=== PATIENT | male | born 1990 | race Caucasian/White ===

== ENCOUNTER 2018-10-13 15:10 | Observation (INO) | payer OTHER ==
[2018-10-13] MEDS ORDERED: Lidocaine 1% 4 ML ONE (15:38)
[2018-10-13] MEDS ORDERED: Succinylcholine/Normal Saline 100 MG/5 ML Syringe ONE (15:38)
[2018-10-13] MEDS ORDERED: Lactated Ringers 1,000 ML ONE (15:38)
[2018-10-13] MEDS ORDERED: fentaNYL 250 MCG/5 ML SDV ONE (15:38)
[2018-10-13] MEDS ORDERED: Rocuronium 50 MG/5 ML Vial ONE (15:38)
[2018-10-13] MEDS ORDERED: Midazolam 1 MG/ML 2 ML SDV ONE (15:38)
[2018-10-13] MEDS ORDERED: Propofol 200 MG/20 ML SDV ONE ×2 (15:38→19:03)
[2018-10-13] MEDS ORDERED: ceFAZolin 1 GM Vial ONE (15:38)
[2018-10-13] MEDS ORDERED: Ondansetron 4 MG/2 ML SDV ONE ×2 (15:38→15:39)
[2018-10-13] MEDS ORDERED: Ketorolac 30 MG/ML SDV ONE (15:39)
[2018-10-13] MEDS ORDERED: Dexamethasone 4 MG/ML 5 ML MDV ONE (15:39)
[2018-10-13] MEDS ORDERED: Sodium Chloride 0.9% 10 ML Syringe FLUSH PRN (15:57)
[2018-10-13] MEDS ORDERED: Lactated Ringers 1,000 ML IV SCH (16:00)
--- NOTE | 2018-10-13 16:39 | PCM.HP ---
H&P History of Present Illness - General Date of Service: 10/13/18 Admit Problem/Dx: incarcerated ventral hernia Source of Information: Patient History Limitations: Reports: No Limitations - History of Present Illness Initial Comments - Free Text/Narative: 28 yo male, was seen in the primary clinic for worsening pain and bulge in his abdomen. His PCM asked me to perform surgical evaluation of the patient. The patient had a prior ex-lap for perforated appendicitis at the age of 13, and he has a known ventral hernia. He was seen by Dr. Garay (former General Surgeon at [facility]) in August 2017 and had [address] a CT scan at that time. He did not have any symptoms, and the hernia was reducible. No surgical intervention was pursued at the time. About 3 days ago, he developed worsening pain at the site of the bulge, which was previously reducible. However, he could not push the bulge back in. He started to develop nausea (without emesis) and diarrhea in the past day. Last meal was at 0900 this morning (two carrots). Right Lower Abdomen Pain Score (Numeric/FACES): 5 - Related Data Allergies/Adverse Reactions: Allergies Allergy/AdvReac Type Severity Reaction Status Date / Time No Known Allergies Allergy Verified 12/24/17 18:03 Past Medical History Respiratory History: Reports: Sleep Apnea Other Respiratory History: uses CPAP Other Musculoskeletal History: Broken leg 2018 - Past Surgical History GI Surgical History: Reports: Appendectomy, Hernia, Abdominal, Other (See Below) Other GI Surgeries/Procedures: colon surgery Musculoskeletal Surgical History: Reports: Other (See Below) (RIGHT tibia surgery (for fracture) in November 2017) Social & Family History - Family History Family Medical History: Noncontributory - Tobacco Use Smoking Status *Q: Former Smoker Used Tobacco, but Quit: Yes Month/Year Tobacco Last Used: 2013 Second Hand Smoke Exposure: No - Caffeine Use Caffeine Use: Reports: None - Recreational Drug Use Recreational Drug Use: No - Living Situation & Occupation Living situation: Reports: , with Family H&P Review of Systems - Review of Systems: Review Of Systems: ROS reveals no pertinent complaints other than HPI. Exam - Exam Exam: See Below - Vital Signs Vital Signs: Last Vital Signs Temp 36.7 C 10/13/18 15:58 Pulse 96 10/13/18 15:58 Resp 18 10/13/18 15:58 BP 141/96 H 10/13/18 15:58 Pulse Ox 99 10/13/18 15:58 Weight: 116.21 kg - Exam General: Alert, Oriented, Cooperative HEENT: Conjunctiva Clear. No: Scleral Icterus Lungs: Clear to Auscultation, Normal Respiratory Effort Cardiovascular: Regular Rate, Regular Rhythm, Normal S1, Normal S2 (Male) Exam: Other (well-healed midline laparotomy scar, with a palpable, firm, tender bulge located just to the RIGHT of the umbilicus. Bulge is about 3- 4 cm in size. Non-reducible.) Extremities: Normal Inspection - Patient Data Lab Results Last 24 hrs: WBC 9.9 CRP 3.4 H/H normal electrolytes WNL UA normal Imaging Impressions Last 24 hrs: CT abdomen Technique: Multiple axial sections were obtained from above the dome of the diaphragm to the mid hip level. Intravenous and oral contrast was utilized. Comparison: Prior CT abdomen and pelvis exam of 12/24/17. Findings: Fat-containing hernia is seen to the right of the umbilicus. This has increased in size from prior exam and shows slight inflammatory-type change. No bowel is seen within this hernia. Visualized lung bases show nothing acute. Liver contains no focal abnormality. Spleen appears within normal limits. Adrenal glands show no nodule. Pancreas is within normal limits. Gallbladder contains no calcified gallstones. Kidneys show symmetric contrast enhancement without hydronephrosis or mass. Aorta shows no aneurysm. No retroperitoneal adenopathy or mesenteric abnormalities are seen. Upper pelvis appears within normal limits. Appendix is not visualized. No bowel abnormality is appreciated. Bone window settings were reviewed which shows nothing acute. Impression: 1. Increasing size of fat-containing abdominal wall hernia located to the right of the umbilicus. Mild increasing inflammatory change is seen within this hernia. No bowel is identified within this hernia. 2. Other normal findings as noted above. Diagnostic code #3 Dictated by: Prem Morgan MD 10/13/18 at 1610 - Problem List (1) Ventral hernia with obstruction SNOMED Code(s): 964428082 ICD Code: K43.6 - OTHER AND UNSP VENTRAL HERNIA WITH OBSTRUCTION, W/O GANGRENE Status: Acute Current Visit: Yes Problem List Initiated/Reviewed/Updated: Yes Orders Last 24hrs: Active Orders 24 hr Category Date Time Status Peripheral IV Care [RC] . DIRECTED Care 10/13/18 15:57 Active Lactated Ringers [Ringers, Lactated] 1,000 ml Med 10/13/18 16:00 Active IV ASDIRECTED Sodium Chloride 0.9% [Saline Flush] Med 10/13/18 15:57 Active 10 ml FLUSH ASDIRECTED PRN Peripheral IV Insertion Adult [OM.PC] Routine Oth 10/13/18 15:57 Ordered Code Status [Resuscitation Status] Routine Resus Stat 10/13/18 16:18 Ordered Medication Orders Lactated Ringer's (Ringers, Lactated) 1,000 mls @ 125 mls/hr IV ASDIRECTED QUANG Sodium Chloride (Saline Flush) 10 ml FLUSH ASDIRECTED PRN PRN Reason: Keep Vein Open Assessment/Plan Comment:: 28 yo male, h/o morbid obesity (BMI 38) and GARY on CPAP, s/p distant ex-lap for perforated appendicitis, with incarcerated ventral hernia. - CT scan to evaluate details of hernia for operative planning. CT scan images and radiology report were reviewed. Fascial defect located adjacent to (just RIGHT of) umbilicus, measuring about 1.8 x 1.7 cm, with fat in the hernia sac with inflammatory changes. Prior CT scan in August 2017 was also reviewed. It appears that the hernia was present at that time, but with less fat in the hernia sac. That CT can did comment on a LEFT lung base nodule, but no parenchymal changes were seen on subsequent CT scan (performed November 2017 and today, September 2018). Patient is a former smoker (quit in 2013). - Consent for laparoscopic ventral hernia repair, with possible mesh, possible open. Indications, risks, and benefits were discussed with the patient in detail. Risks include bleeding, infection, damage to surrounding structures, need for additional procedure, and hernia recurrence. - In preparation for surgery, NPO. - Ancef 2 gm IV service station helper to OR. Chandler Herndon M.D (Siri)., F.A.C.S. General Surgery
[2018-10-13] MEDS ORDERED: ceFAZolin 2 GM in Premix Bag 1 BAG IV ONE (16:41)
[2018-10-13] MEDS: Lidocaine 1% with EPINEPHrine 1:100,000 20 ML MDV ONE ×2 (17:56→18:27)
[2018-10-13] MEDS: Bupivacaine 0.5% 30 ML SDV ONE ×2 (17:56→18:26)
[2018-10-13] MEDS ORDERED: Ketamine 500 mg/10 ML MDV ONE (18:15)
[2018-10-13] MEDS ORDERED: fentaNYL 100 MCG/2 ML SDV IVPUSH PRN (18:17)
[2018-10-13] MEDS ORDERED: Ondansetron 4 MG/2 ML SDV IVPUSH PRN ×2 (18:17→21:13)
[2018-10-13] MEDS ORDERED: diphenhydrAMINE 50 MG/ML SDV IVPUSH PRN (18:17)
[2018-10-13] MEDS ORDERED: HYDROmorphone 0.5 MG/0.5 ML Syringe IVPUSH PRN ×2 (18:17→21:13)
--- NOTE | 2018-10-13 18:17 | PCM.PREANE ---
Preanesthetic Assessment - Anesthesia/Transfusion/Family Hx Anesthesia History: Prior Anesthesia Without Reaction Family History of Anesthesia Reaction: No Transfusion History: Prior Transfusion Without Reaction - Review of Systems General: No Symptoms Pulmonary: No Symptoms (Severe Sleep Apnea uses CPAP. ) Cardiovascular: Other (Borderline hypertension. ) Gastrointestinal: Abdominal Pain, Nausea (Earlier today. ) Neurological: No Symptoms Other: Reports: None - Physical Assessment NPO Status Date: 10/13/18 NPO Status Time: 09:00 (2 small carrots) Pulse: 96 O2 Sat by Pulse Oximetry: 99 Respiratory Rate: 18 Blood Pressure: 141/96 Temperature: 36.7 C Vital Signs: Last Vital Signs Temp 36.7 C 10/13/18 15:58 Pulse 96 10/13/18 15:58 Resp 18 10/13/18 15:58 BP 141/96 H 10/13/18 15:58 Pulse Ox 99 10/13/18 15:58 Height: 1.75 m Weight: 116.21 kg ASA Class: 2E Mental Status: Alert & Oriented x3 Airway Class: Mallampati = 2 Dentition: Reports: Normal Dentition Thyro-Mental Finger Breadths: 3 Mouth Opening Finger Breadths: 3 ROM/Head Extension: Full Lungs: Clear to Auscultation, Normal Respiratory Effort Cardiovascular: Regular Rate, Regular Rhythm - Allergies Allergies/Adverse Reactions: Allergies Allergy/AdvReac Type Severity Reaction Status Date / Time No Known Allergies Allergy Verified 12/24/17 18:03 - Anesthesia Plan Pre-Op Medication Ordered: Anxiolytic - Acknowledgements Anesthesia Type Planned: General Anesthesia Pt an Appropriate Candidate for the Planned Anesthesia: Yes Alternatives and Risks of Anesthesia Discussed w Pt/Guardian: Yes Pt/Guardian Understands and Agrees with Anesthesia Plan: Yes PreAnesthesia Questionnaire Respiratory History: Reports: Sleep Apnea Other Respiratory History: uses CPAP Other Musculoskeletal History: Broken leg 2018 - Past Surgical History GI Surgical History: Reports: Appendectomy, Hernia, Abdominal, Other (See Below) Other GI Surgeries/Procedures: colon surgery Musculoskeletal Surgical History: Reports: Other (See Below) (RIGHT tibia surgery (for fracture) in November 2017) - SUBSTANCE USE Smoking Status *Q: Former Smoker Second Hand Smoke Exposure: No Recreational Drug Use History: No - CURRENT (IN HOUSE) MEDS Current Meds: Current Medications Lactated Ringer's (Ringers, Lactated) 1,000 mls @ 125 mls/hr IV ASDIRECTED QUANG Sodium Chloride (Saline Flush) 10 ml FLUSH ASDIRECTED PRN PRN Reason: Keep Vein Open Discontinued Medications Bupivacaine HCl (Marcaine 0.5%) Confirm Administered Dose 30 ml .ROUTE .STK-MED ONE Stop: 10/13/18 15:46 Cefazolin Sodium (Ancef) Confirm Administered Dose 2 gm .ROUTE .STK-MED ONE Stop: 10/13/18 15:39 Dexamethasone (Dexamethasone) Confirm Administered Dose 20 mg .ROUTE .STK-MED ONE Stop: 10/13/18 15:40 Fentanyl (Sublimaze) Confirm Administered Dose 250 mcg .ROUTE .STK-MED ONE Stop: 10/13/18 15:39 Lidocaine HCl (Xylocaine-Mpf 1%) Confirm Administered Dose 4 mls @ as directed .ROUTE .STK-MED ONE Stop: 10/13/18 15:39 Lactated Ringer's (Ringers, Lactated) Confirm Administered Dose 1,000 mls @ as directed .ROUTE .STK-MED ONE Stop: 10/13/18 15:39 Cefazolin Sodium/Dextrose 2 gm (/ Premix) 50 mls @ 100 mls/hr IV ONETIME ONE Stop: 10/13/18 17:10 Ketorolac Tromethamine (Toradol) Confirm Administered Dose 30 mg .ROUTE .STK- MED ONE Stop: 10/13/18 15:40 Lidocaine/Epinephrine (Xylocaine 1% With Epinephrine 1:100,000) Confirm Administered Dose 20 ml .ROUTE .STK-MED ONE Stop: 10/13/18 15:45 Midazolam HCl (Versed 1 Mg/Ml) Confirm Administered Dose 2 mg .ROUTE .STK-MED ONE Stop: 10/13/18 15:39 Ondansetron HCl (Zofran) Confirm Administered Dose 4 mg .ROUTE .STK-MED ONE Stop: 10/13/18 15:39 Ondansetron HCl (Zofran) Confirm Administered Dose 4 mg .ROUTE .STK-MED ONE Stop: 10/13/18 15:40 Propofol (Diprivan 20 Ml) Confirm Administered Dose 400 mg .ROUTE .STK-MED ONE Stop: 10/13/18 15:39 Rocuronium Herndon (Zemuron) Confirm Administered Dose 50 mg .ROUTE .STK-MED ONE Stop: 10/13/18 15:39 Succinylcholine Chloride (Succinylcholine In Ns Pf) Confirm Administered Dose 100 mg .ROUTE .[facility] Stop: 10/13/18 15:39
[2018-10-13] MEDS ORDERED: Phenylephrine/Normal Saline 100 MCG/ML 10 ML Syringe ONE (19:05)
[2018-10-13] MEDS ORDERED: ePHEDrine/Normal Saline 25 MG/5 ML Syringe ONE (19:18)
[2018-10-13] MEDS ORDERED: Neostigmine Methylsulfate 1 MG/ML 5 ML Syringe ONE (19:23)
[2018-10-13] MEDS ORDERED: HYDROmorphone 0.5 MG/0.5 ML Syringe ONE (19:43)
[2018-10-13] MEDS ORDERED: fentaNYL 100 MCG/2 ML SDV ONE (19:45)
--- NOTE | 2018-10-13 20:05 | PCM.OPNOTE ---
- General Post-Op/Procedure Note Date of Surgery/Procedure: 10/13/18 Operative Procedure(s): laparoscopic, then open, incarcerated ventral hernia repair Findings: 1) laparoscopic approach to evaluate the hernia, including reduction of hernia sac contents and resection of necrotic appearing omental fat 2) Hernia defect measured only 1 x 1 cm. 3) open repair with interrupted 0-Ethibond sutures Pre Op Diagnosis: incarcerated ventral incisional hernia Post-Op Diagnosis: Same Primary Surgeon: Chandler Herndon Anesthesia Provider: Monalisa Juares Pathology: 1) omental fat 2) hernia sac Fluid Replacement, Intraop: 2,500 (crystalloid) Output, Urine Amount: 125 EBL in mLs: 15 Complications: None Condition: Good Free Text/Narrative:: Indications for surgery: The patient is a 28 yo male, who had a distant history of exploratory laparotomy for perforated appendicitis, presenting with worsening pain and bulge just to the RIGHT of the umbilicus. On exam and on CT scan, he was found to have an incarcerated ventral hernia at the umbilicus with a large hernia sac containing incarcerated fat just to the RIGHT of the umbilicus. The patient was consented for urgent laparoscopic ventral hernia repair with possible mesh, possible open. Indications, risks, and benefits were discussed with the patient in detail. Description of procedure: After surgical consent was verified, the patient was brought to the main OR. Anesthesia performed general endotracheal intubation without complications. Appropriate padding and straps were placed. SCD's were on and functioning. The patient receive a perioperative dose of Ancef 2 gm IV. A Bowen catheter and OG tube were inserted. A surgical time-out was performed to verify proper patient, proper site, and proper procedure. Local anesthetic (1:1 solution of 1% lidocaine with epinephrine and 0.5% bupivacaine) was injected at Maravilla's point in the LUQ. A 5 mm incision was made , and a Veress needle was inserted. The abdomen was insufflated to 15 mmHg without complications. Using the Optiview technique, a 5 mm trocar was inserted. The laparoscope was inserted, and there was no evidence of intra- abdominal injury from trocar placement. On inspection of the abdominal cavity, there was omental fat that was stuck along the midline of the abdomen. An additional 5 mm trocar was placed in the left lower quadrant (which would be upsized later to a 12 mm trocar). An additional 5 mm trocar was placed at the suprapubic region. Using blunt and Ligasure dissection, the omental fat that was stuck to the anterior abdominal wall was carefully taken down. This allowed improved exposure of the hernia near the umbilicus. There was a large amount of fat that was stuck in the hernia sac, which was carefully taken down, with pressure applied externally to the hernia. There were parts of the fat that was necrotic appearing. In piecemeal fashion, the fat that was in the hernia sac was resected and removed from the abdomen. The surrounding facia was cleared of adhesed fat. The hernia defect was identified, located at the umbilicus, and it was quite small, measuring about 1 cm. There was a large amount of omental fat that was adhesed to the midline several cm's cephalad to this. The decision was made to avoid further dissection around this area, and to proceed with an open repair, given the small size of the defect. Only large sized mesh (15 cm or larger) were available for the laparoscopic approach. The abdomen was desufflated. After injection of local anesthetic, a horizontal incision about 4 cm long was made overlying the hernia defect. Dissection was carried down to the fascia, and the small hernia defect was identified, measuring about 1 cm. This defect was closed with three interrupted 0-Ethibond sutures. The surgical wound was irrigated. The abdomen was again re-insufflated, and the repair was visualized from within the abdomen. Hemostasis was ensured. Previously, during dissection, there was some bloody oozing from the omental fat, and hemostasis was achieved with application of the Ligasure device. The 12 mm trocar site was closed with an interrupted 0-Vicryl suture via a transfascial suture passer. The suprapubic trocar was removed under direct visualization, and the abdomen was desufflated. The remaining LUQ trocar was removed. All skin incision sites were closed with 4-0 Monocryl and covered with Dermabond. The patient tolerated the procedure well, was extubated, and transported to the PACU in stable condition. At the end of the case, all needle, instrument, and gauze counts were correct. The Bowen catheter and OG tube were removed. I was present and scrubbed for the entirety of the case. Chandler Herndon M.D., F.A.C.S. General Surgery
--- NOTE | 2018-10-13 20:08 | PCM.POSTAN ---
POST ANESTHESIA ASSESSMENT - MENTAL STATUS Mental Status: Alert, Oriented - VITAL SIGNS Pulse Rate: 101 SaO2: 100 Resp Rate: 13 Blood Pressure: 154/88 Temperature: 37.3 C - RESPIRATORY Respiratory Status: Respiratory Rate WNL, Airway Patent, O2 Saturation Stable - CARDIOVASCULAR CV Status: Pulse Rate WNL, Blood Pressure Stable - GASTROINTESTINAL GI Status: No Symptoms - PAIN Pain Score: 0 - POST OP HYDRATION Hydration Status: Adequate & Stable
[2018-10-13] MEDS ORDERED: Promethazine 12.5 MG in Sodium Chloride 0.9% 50 ML IV PRN (21:51)
[2018-10-13] MEDS: Acetaminophen/oxyCODONE 325-5 MG Tab PO PRN (22:24)
[2018-10-14] MEDS: Acetaminophen/oxyCODONE 325-5 MG Tab PO PRN ×2 (02:30→08:20)
--- NOTE | 2018-10-14 10:38 | PCM48HPAN ---
Post Anesthesia Note - EVALUATION WITHIN 48HRS OF ANESTHETIC Vital Signs in Normal Range: Yes Patient Participated in Evaluation: Yes Respiratory Function Stable: Yes Airway Patent: Yes Cardiovascular Function Stable: Yes Hydration Status Stable: Yes Pain Control Satisfactory: Yes Nausea and Vomiting Control Satisfactory: Yes Mental Status Recovered: Yes - COMMENTS/OBSERVATIONS Free Text/Narrative:: late entry
== END 2018-10-14 10:36 | disposition home or self-care (01) ==
LOC: JD.MS 15:50
PROVIDERS: ADMIT Student in an Organized Health Care Education/Training Program; ATTEND Student in an Organized Health Care Education/Training Program
DX: K43.6 Other and unspecified ventral hernia with obstruction, without gangrene (principal); G47.33 Obstructive sleep apnea (adult) (pediatric); E66.01 Morbid (severe) obesity due to excess calories; Z68.38 Body mass index [BMI] 38.0-38.9, adult; Z90.49 Acquired absence of other specified parts of digestive tract; Z99.89 Dependence on other enabling machines and devices; Z53.31 Laparoscopic surgical procedure converted to open procedure; Z87.891 Personal history of nicotine dependence; R93.5 Abnormal findings on diagnostic imaging of other abdominal regions, including retroperitoneum
CPT/HCPCS: 36415; 49561; 74160; 80053; 81003; 85025; 86140; 94762; A9270; G0378; G0379; J0330; J0690; J1100; J1170; J1885; J2001; J2250; J2370; J2405; J2550; J2704; J2710; J3010; J3490; J7050; J7120; Q9967; 00790

== ENCOUNTER 2021-04-17 07:51 | Day surgery (SDC) | payer BC ==
[~2021-04-17 07:51] MED LIST: Lactated Ringers 1,000 ML IV SCH; Lidocaine 1%/Sod Bicarbonate in NS 8.4% 1 ML Syringe IDERM PRN; Sodium Chloride 0.9% 10 ML Syringe FLUSH PRN
--- NOTE | 2021-04-17 08:11 | PCM.PREANE ---
Preanesthetic Assessment - Procedure Proposed Procedure: diag colonoscopy - Anesthesia/Transfusion/Family Hx Anesthesia History: Prior Anesthesia Without Reaction Family History of Anesthesia Reaction: No Transfusion History: No Prior Transfusion(s) - Review of Systems General: No Symptoms Pulmonary: Cough (slight today- couple days) Cardiovascular: No Symptoms Gastrointestinal: No Symptoms Neurological: No Symptoms Other: Reports: None - Physical Assessment NPO Status Date: 04/17/21 NPO Status Time: 05:30 (finished prep) Vital Signs: 129/82 88 97% 18 97.9 Height: 5 ft 9 in Weight: 115 kg ASA Class: 2 Mental Status: Alert & Oriented x3 Airway Class: Mallampati = 1 Dentition: Reports: Normal Dentition Thyro-Mental Finger Breadths: 3 Mouth Opening Finger Breadths: 3 ROM/Head Extension: Full Lungs: Clear to Auscultation, Normal Respiratory Effort Cardiovascular: Regular Rate, Regular Rhythm - Allergies Allergies/Adverse Reactions: Allergies Allergy/AdvReac Type Severity Reaction Status Date / Time No Known Allergies Allergy Verified 12/24/17 18:03 - Blood Blood Available: No - Acknowledgements Anesthesia Type Planned: MAC Pt an Appropriate Candidate for the Planned Anesthesia: Yes Alternatives and Risks of Anesthesia Discussed w Pt/Guardian: Yes Pt/Guardian Understands and Agrees with Anesthesia Plan: Yes PreAnesthesia Questionnaire Cardiovascular History: Reports: Hypertension Respiratory History: Reports: Sleep Apnea Other Respiratory History: uses CPAP- doesn't use anymore Gastrointestinal History: Reports: GERD Other Musculoskeletal History: Broken leg 2018 Psychiatric History: Reports: None Endocrine/Metabolic History: Reports: Obesity/BMI 30+ Oncologic (Cancer) History: Reports: None - Past Surgical History GI Surgical History: Reports: Appendectomy, Hernia, Abdominal, Other (See Below) Other GI Surgeries/Procedures: colon surgery Musculoskeletal Surgical History: Reports: Other (See Below) (RIGHT tibia surgery (for fracture) in November 2017) - SUBSTANCE USE Tobacco Use Status *Q: Former Tobacco User Tobacco Use Within Last Twelve Months: No Second Hand Smoke Exposure: No Days Per Week of Alcohol Use: 1 Recreational Drug Use History: No - HOME MEDS Home Medications: Home Meds Docusate Sodium [Colace] 100 mg PO BID #30 capsule 10/13/18 [Rx] oxyCODONE HCl/Acetaminophen [Percocet 5-325 mg Tablet] 1 - 2 each PO Q4H PRN #30 tablet 10/13/18 [Rx] - CURRENT (IN HOUSE) MEDS Current Meds: Current Medications Lactated Ringer's (Ringers, Lactated) 1,000 mls @ 125 mls/hr IV ASDIRECTED QUANG Stop: 04/17/21 23:00 Lidocaine/Sodium Bicarbonate (Lidocaine 1%/Sod Bicarbonate In Ns 8.4% 1 Ml Syringe) 0.25 ml IDERM ONETIME PRN PRN Reason: Prior to IV Start Stop: 04/17/21 18:00 Sodium Chloride (Sodium Chloride 0.9% 10 Ml Syringe) 10 ml FLUSH ASDIRECTED PRN PRN Reason: Keep Vein Open Stop: 04/17/21 18:00
[2021-04-17] MEDS ORDERED: Propofol 200 MG/20 ML SDV ONE ×2 (08:17→09:08)
[2021-04-17] MEDS ORDERED: Lidocaine 1% 4 ML ONE (08:18)
[2021-04-17] MEDS ORDERED: fentaNYL 100 MCG/2 ML SDV ONE (08:59)
[2021-04-17] MEDS ORDERED: Lactated Ringers 1,000 ML ONE ×2 (09:02→09:15)
[2021-04-17] MEDS ORDERED: Midazolam 1 MG/ML 2 ML SDV ONE (09:11)
--- NOTE | 2021-04-17 09:39 | PCM48HPAN ---
Post Anesthesia Note - EVALUATION WITHIN 48HRS OF ANESTHETIC Vital Signs in Normal Range: Yes Patient Participated in Evaluation: Yes Respiratory Function Stable: Yes Airway Patent: Yes Cardiovascular Function Stable: Yes Hydration Status Stable: Yes Pain Control Satisfactory: Yes Nausea and Vomiting Control Satisfactory: Yes Mental Status Recovered: Yes
--- NOTE | 2021-04-17 09:41 | PCM.PRNOTE ---
- Free Text/Narrative Note: Date: 04/17/2021 Procedure: diagnostic colonoscopy History: recent significant painless bright red blood per rectum. Family history of colon cancer. Endoscopist: Frank Williamson MD Findings: excellent prep. There appeared to be normal cecum, but the ileocecal junction did have the appearance of an end to side anastomosis rather than normal ileocecal valve. No polyps identified. Small internal hemorrhoids. Hypertonic anal sphincter without evidence of fissure. Detailed Report: The patient was taken to the endoscopy suite and placed in left lateral decubitus position. Timeout was performed and monitored anesthesia care was initiated. The anus appeared normal. Digital rectal exam was remarkable for spastic or hypertonic anal sphincter. Digital exam was limited and the examining finger could not be advanced far enough to palpate the prostate. The colonoscope was inserted and advanced all the way to the cecum. The patient had reported prior history of what sounds like ileocecectomy for perforated appendicitis. The bowel prep was excellent. It appeared that the cecum was intact with so-called crows feet visible at the base. An apparent end to side ileocolic anastomosis was seen, with transition from colonic mucosa to ileal mucosa. The scope was slowly withdrawn and mucosal surfaces carefully inspected. No polyps were identified. There was no diverticulosis. On retroflexion within the rectum, internal hemorrhoids were noted. Air was suctioned from the distal colon and rectum prior to withdrawal of the scope. The patient tolerated the procedure well.
== END 2021-04-17 10:17 | disposition home or self-care (01) ==
LOC: JD.SDS 07:51
PROVIDERS: ATTEND Surgery
DX: K62.5 Hemorrhage of anus and rectum (principal); K64.8 Other hemorrhoids; I10 Essential (primary) hypertension; E66.9 Obesity, unspecified; G47.33 Obstructive sleep apnea (adult) (pediatric); Z79.899 Other long term (current) drug therapy; Z98.890 Other specified postprocedural states; Z80.0 Family history of malignant neoplasm of digestive organs; Z87.891 Personal history of nicotine dependence; Z90.49 Acquired absence of other specified parts of digestive tract
CPT/HCPCS: 45378; J2250; J2704; J3010; J7120; 00811

== ENCOUNTER 2021-09-27 22:52 | Emergency (ER) | payer BC | END 2021-09-28 00:25 | disposition home or self-care (01) | LOC: JD.ED 22:52 | DX: S62.336A Displaced fracture of neck of fifth metacarpal bone, right hand, initial encounter for closed fracture (principal); I10 Essential (primary) hypertension; E66.9 Obesity, unspecified; Z68.41 Body mass index [BMI] 40.0-44.9, adult; W22.8XXA Striking against or struck by other objects, initial encounter | CPT/HCPCS: 29125; 73130-26-RT; 73130-RT; 99283-25 ==

== ENCOUNTER 2021-12-13 00:34 | Emergency (ER) | payer BC ==
[2021-12-13] MEDS ORDERED: Fluorescein 1 MG Ophth Strip EYERT ONE (02:29)
[2021-12-13] MEDS ORDERED: Proparacaine 0.5% Ophth Soln 15 ML Bottle EYERT STA (02:29)
[2021-12-13] MEDS ORDERED: Fluorescein 1 MG Ophth Strip ONE (02:32)
[2021-12-13] MEDS ORDERED: Erythromycin Base 0.5% Ophth Oint 1 GM Tube EYERT STA (02:46)
== END 2021-12-13 03:00 | disposition home or self-care (01) ==
LOC: JD.ED 00:34
DX: H10.9 Unspecified conjunctivitis (principal); I10 Essential (primary) hypertension; E66.9 Obesity, unspecified; Z68.39 Body mass index [BMI] 39.0-39.9, adult; Z79.899 Other long term (current) drug therapy; Z28.310 Unvaccinated for COVID-19
CPT/HCPCS: 99283; A9270; 99282